=== PATIENT | female | born 1990 | race Caucasian/White ===

== ENCOUNTER 2020-12-27 19:10 | Emergency (ER) | payer BC ==
[~2020-12-27] VITALS: Ht 167.6 cm; Wt 52.6 kg
--- NOTE | 2020-12-27 19:20 | NUR ---
Patient bibs chest discomfort, body pain of 6/10, no appetite x 1 week. no sob noted, no s/o any acute distress. able to to make needs known. Breathing even and unlabored. Stable on RA. Kept Comfortable. will continue with plan of care
[2020-12-27] MEDS: IV NS 0.9% 1,000 ML BAG IV ONE (20:25)
[2020-12-27] MEDS ORDERED: PANTOPRAZOLE 40 MG VIAL ONE (20:27)
[2020-12-27] MEDS ORDERED: ONDANSETRON HCL/PF 4 MG/2 ML VIAL ONE (20:27)
[2020-12-27] MEDS ORDERED: KETOROLAC TROMETHAMINE 15 MG/ML VIAL ONE (20:27)
[2020-12-27] MEDS: ONDANSETRON HCL/PF 4 MG/2 ML VIAL IV ONE (20:28)
[2020-12-27] MEDS ORDERED: LORAZEPAM INJ 2 MG/ML VIAL ONE (20:29)
[2020-12-27] MEDS: LORAZEPAM INJ 2 MG/ML VIAL IV ONE (20:30)
[2020-12-27] MEDS: KETOROLAC TROMETHAMINE INJ 30 MG/ML VIAL IV ONE (20:31)
[2020-12-27 20:33] LABS: BASOPHILS # (AUTO) 0.1 K/uL (0.0-0.2); BASOPHILS % (AUTO) 1.2 % (0.0-2.0); EOSINOPHILS % (AUTO) 0.3 % (0.0-6.0); HEMATOCRIT 35 % (33-45); HEMOGLOBIN 11.3 g/dL (11.5-14.8); LYMPHOCYTES # (AUTO) 1.7 K/uL (0.8-4.8); LYMPHOCYTES % (AUTO) 27.2 % (20.0-44.0); MEAN CORPUSCULAR HGB CONC 33 g/dl (31.0-36.0); MEAN CORPUSCULAR VOLUME 72 fL (82-100); MONOCYTES # (AUTO) 0.7 K/uL (0.1-1.30); MONOCYTES % (AUTO) 10.6 % (2.0-12.0); NEUTROPHILS # (AUTO) 3.7 K/uL (1.8-8.9); NEUTROPHILS % (AUTO) 60.7 % (43.0-81.0); PLATELET COUNT (AUTO) 239 K/uL (150-450); RED BLOOD CELL COUNT(AUTO) 4.82 MIL/uL (4.0-5.2); WHITE BLOOD COUNT (AUTO) 6.2 K/uL (4.3-11.0)
[2020-12-27] MEDS: PANTOPRAZOLE 40 MG VIAL IV ONE (20:40)
[2020-12-27 20:46] LABS: CALCIUM, SERUM 9.2 mg/dL (8.5-10.1); CREATININE 0.7 mg/dL (0.6-1.3); POTASSIUM 3.5 mmol/L (3.5-5.1)
[2020-12-27 20:50] LABS: ALBUMIN 4.5 g/dL (3.4-5.0); BILIRUBIN,DIRECT 0.2 mg/dL (0.0-0.2); BILIRUBIN,TOTAL 0.8 mg/dL (0.2-1.0); TOTAL PROTEIN, SERUM 7.8 g/dL (6.4-8.2)
[2020-12-27 21:16] LABS: LYMPHOCYTES % (MANUAL) 20 % (16-48); MONOCYTES % (MANUAL) 13 % (0-11.0); NEUTROPHILS % (MANUAL) 67 (42-76)
[2020-12-27] MEDS ORDERED: ONDA4TAB11 PO (21:42)
[2020-12-27] MEDS ORDERED: PANT40TA2 PO (21:42)
--- NOTE | 2020-12-27 22:34 | NUR ---
IV removed. Catheter intact and site benign. Pressure and 4x4 applied to site. No bleeding noted. Patient discharged to home in stable condition. Written and verbal after care instructions given. Patient verbalizes understanding of instruction. Pt ambualted out of ED. vss.
[2020-12-27 23:49] VITALS: BP 120/78
== END 2020-12-27 23:50 | disposition home or self-care (01) ==
LOC: ER 19:16
DX: R53.1 Weakness (principal); R11.2 Nausea with vomiting, unspecified; R10.9 Unspecified abdominal pain; Z20.822 Contact with and (suspected) exposure to COVID-19; R64 Cachexia; Z68.1 Body mass index [BMI] 19.9 or less, adult; E89.0 Postprocedural hypothyroidism; Z87.11 Personal history of peptic ulcer disease; Z79.899 Other long term (current) drug therapy
CPT/HCPCS: 36415; 71045; 80048; 80076; 83690; 85007; 85025; 87426; 93005; 96374; 96375; 99285; C9113; C9803; J1885; J2060; J2405; J7030